=== PATIENT | female | born 1970 | race Hispanic/Latino ===

== ENCOUNTER → 2020-11-27 | Day surgery (SDC) | payer OTHER ==
[~2020-11-27] MED LIST: MULTI-VITAMIN1 EACH PO; PREVACID15 MG PO; TRAZODONE HCL100 MG PO; ZESTRIL10 MG PO
[2020-11-27 07:30] VITALS: BP 105/76
== END | disposition home or self-care (01) ==
LOC: OR 05:34
PROVIDERS: ATTEND Internal Medicine Gastroenterology
DX: Z12.11 Encounter for screening for malignant neoplasm of colon (principal); D12.5 Benign neoplasm of sigmoid colon; K64.8 Other hemorrhoids; Z71.3 Dietary counseling and surveillance; E66.01 Morbid (severe) obesity due to excess calories; I10 Essential (primary) hypertension; F17.210 Nicotine dependence, cigarettes, uncomplicated; Z01.810 Encounter for preprocedural cardiovascular examination; Z01.812 Encounter for preprocedural laboratory examination; Z20.822 Contact with and (suspected) exposure to COVID-19; Z68.41 Body mass index [BMI] 40.0-44.9, adult
CPT/HCPCS: 45385; 81025; 93005; U0002; 45378